=== PATIENT | female | born 1990 | race Hispanic/Latino ===

== ENCOUNTER 2018-01-27 11:38 | Emergency (ER) | payer OTHER, SELFPAY ==
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
== END 2018-01-27 13:38 | disposition home or self-care (01) ==
LOC: ERS 11:38
DX: S96.912A Strain of unspecified muscle and tendon at ankle and foot level, left foot, initial encounter (principal); V49.9XXA Car occupant (driver) (passenger) injured in unspecified traffic accident, initial encounter